=== PATIENT | male | born 1950 | race Caucasian/White ===

== ENCOUNTER 2017-05-24 11:39 | Day surgery (SDC) | payer OTHER ==
[~2017-05-24] VITALS: Ht 188 cm; Wt 147.7 kg
[~2017-05-24 11:39] MED LIST: AMIODARONE HCL200 MG PO; BACTRIM,SEPT1 TABLET PO; CALCIUM WITH M1 EAC2 PO; FISH OIL500 MG PO; FLEXERIL10 MG PO; HYZAAR; KEFLEX500 MG PO; LASIX80 MG PO; LO-DOSE ASPIRIN81 M1 PO; METOPROLOL SUCC50 MG PO; MICRO-K10 ME2 PO; MULTI-DAY VITA1 EACH PO; SOTALOL; SOTALOL120 MG PO; SPIRONOLACTONE; ST. JOSEPH ASP325 MG PO; TRAMADOL HCL50 MG PO
[2017-05-24 12:13] VITALS: BP 140/81
[2017-05-24 15:04] VITALS: BP 127/78
[2017-05-24 15:18] LABS: POINT-OF-CARE METER ID UU14174212
[2017-05-24 16:10] VITALS: BP 120/72
== END 2017-05-24 16:15 | disposition home or self-care (01) ==
LOC: SDC 11:39
PROVIDERS: Internal Medicine
DX: H33.002 Unspecified retinal detachment with retinal break, left eye (principal); H43.392 Other vitreous opacities, left eye; I11.0 Hypertensive heart disease with heart failure; I50.9 Heart failure, unspecified; Z87.891 Personal history of nicotine dependence; Z79.82 Long term (current) use of aspirin; Z95.810 Presence of automatic (implantable) cardiac defibrillator
CPT/HCPCS: 82948; J0690; J1885; J2405; J3300